=== PATIENT | male | born 1985 ===

== ENCOUNTER 2021-01-25 08:27 | Emergency (ER) | payer SELFPAY ==
[2021-01-25 08:35] VITALS: BP 132/89
[2021-01-25] MEDS ORDERED: ACETAMINOPHEN 325 MG TAB PO ONE (08:55)
[2021-01-25] MEDS ORDERED: IBUPROFEN 400 MG TAB PO ONE (08:55)
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
== END 2021-01-25 09:31 | disposition home or self-care (01) ==
LOC: ED 08:27
DX: S13.4XXA Sprain of ligaments of cervical spine, initial encounter (principal); V49.59XA Passenger injured in collision with other motor vehicles in traffic accident, initial encounter; Y93.89 Activity, other specified; Y92.89 Other specified places as the place of occurrence of the external cause; Y99.8 Other external cause status
CPT/HCPCS: 99283